=== PATIENT | male | born 1990 | race Caucasian/White ===

== ENCOUNTER → 2017-02-24 | Outpatient (CLI) | payer BC | END | disposition home or self-care (01) | LOC: LABPAT 07:15 | PROVIDERS: ATTEND Surgery | DX: Z01.810 Encounter for preprocedural cardiovascular examination (principal); Z01.812 Encounter for preprocedural laboratory examination; I10 Essential (primary) hypertension | CPT/HCPCS: 93005 ==

== ENCOUNTER 2017-02-25 06:39 | Day surgery (SDC) | payer BC ==
[2017-02-23 11:37] VITALS: BMI 45.9
[~2017-02-25 06:39] MED LIST: HEPARIN SODIUM,PORCINE 5,000 UNIT/ML 1 ML VIAL SQ ONE; ceFAZolin 3 GM in SODIUM CHLORIDE 0.9% 100 ML IVPB ONE
[2017-02-25] MEDS ORDERED: DEXAMETHASONE SOD PHOSPHATE 10 MG/ML 1 ML VIAL IV ONE (06:41)
[2017-02-25] MEDS ORDERED: LACTATED RINGERS 1,000 ML IV SCH (06:41)
[2017-02-25] MEDS ORDERED: MIDAZOLAM 2 MG/2 ML VIAL IV PRN (06:41)
[2017-02-25] MEDS ORDERED: ONDANSETRON 4 MG/2 ML VIAL IVP ONE (06:41)
[2017-02-25] MEDS ORDERED: HYDROmorphone 0.5 MG/0.5 ML SYRINGE IVP PRN (06:41)
[2017-02-25] MEDS ORDERED: SCOPOLAMINE 1.5MG/72HR PATCH TRANSDERM ONE (06:41)
[2017-02-25] MEDS ORDERED: LIDOCAINE 1% 20 ML VIAL (10MG/ML) FOR IV START INTRADERMA ONE (07:10)
--- NOTE | 2017-02-25 07:54 | P.GSHP ---
History of Present Illness H&P Date: 02/25/17 Chief Complaint: Right upper quadrant pain This is a 26-year-old male who's had complaints of right quadrant pain. His recent HIDA scan shows evidence of biliary hypokinesis. He presents today for laparoscopic cholecystectomy. Past Medical History Past Medical History: Hypertension Additional Past Medical History / Comment(s): fx ankle History of Any Multi-Drug Resistant Organisms: None Reported Past Surgical History: Orthopedic Surgery Additional Past Surgical History / Comment(s): shoulder scope; skin graft from shoulder to ankle Past Anesthesia/Blood Transfusion Reactions: No Reported Reaction Smoking Status: Never smoker - Past Family History Mother Family Medical History: Cancer, Deep Vein Thrombosis (DVT) Medications and Allergies Home Medications Medication Instructions Recorded Confirmed Type amLODIPine BESYLATE/BENAZEPRIL 1 cap PO DAILY 02/23/17 02/25/17 History [Lotrel 5-20 mg Capsule] Allergies Allergy/AdvReac Type Severity Reaction Status Date / Time Penicillins Allergy Severe Anaphylaxis Verified 02/25/17 07:45 Fish Containing Products Allergy Rash/Hives Verified 02/25/17 06:51 fish derived Allergy Rash/Hives Verified 02/25/17 06:51 iodine Allergy Anaphylaxis Verified 02/25/17 06:51 Surgical - Exam Vital Signs Temp Pulse Resp BP Pulse Ox 98.8 F 82 16 128/85 98 02/25/17 06:57 02/25/17 06:57 02/25/17 06:57 02/25/17 06:57 02/25/17 06:57 - General well developed, no distress - Eyes PERRL - ENT normal pinna - Neck no masses - Respiratory normal expansion - Cardiovascular Rhythm: regular - Abdomen Mild right upper quadrant tenderness Abdomen: soft Assessment and Plan Plan: Right upper quadrant pain Chronic cholecystitis We'll perform laparoscopic cholecystectomy
[2017-02-25] MEDS ORDERED: MIDAZOLAM 2 MG/2 ML VIAL ONE (07:56)
[2017-02-25] MEDS ORDERED: SUCCINYLCHOLINE CHLORIDE VIAL 200 MG/10 ML VIAL IV ONE (07:56)
[2017-02-25] MEDS ORDERED: ROCURONIUM BROMIDE 10 MG/ML 10 ML VIAL IV ONE (07:56)
[2017-02-25] MEDS ORDERED: LIDOCAINE 1% INJ 10MG/ML (20 ML MDV) ONE (07:56)
[2017-02-25] MEDS ORDERED: ePHEDrine SULFATE/0.9% NACL/PF 50 MG/5 ML SYRINGE IV ONE (07:56)
[2017-02-25] MEDS ORDERED: fentaNYL (PF) 50 MCG/ML 2 ML AMP ONE (07:56)
[2017-02-25] MEDS ORDERED: HYDROmorphone (PF) 1 MG/ML ONE (07:56)
[2017-02-25] MEDS ORDERED: PROPOFOL 10 MG/ML 20 ML VIAL IV ONE (07:56)
[2017-02-25] MEDS ORDERED: GLYCOPYRROLATE 0.2 MG/ML 2 ML VIAL ONE (07:56)
[2017-02-25] MEDS ORDERED: NEOSTIGMINE 1 MG/ML 10 ML VIAL ONE (07:56)
[2017-02-25] MEDS ORDERED: SODIUM CHLORIDE 0.9% 100 ML with CLINDAMYCIN 900 MG IV ONE ×2 (08:08)
[2017-02-25] MEDS ORDERED: BUPIVACAIN-EPI 0.5%-1:200,000 30 ML VIAL SQ ONE (08:12)
[2017-02-25] MEDS ORDERED: LACTATED RINGERS 1,000 ML IV ONE (08:37)
[2017-02-25 09:07] VITALS: TEMP 98.2
--- NOTE | 2017-02-25 09:31 | P.OP ---
Date of Procedure: 02/25/17 Preoperative Diagnosis: Cholecystitis Postoperative Diagnosis: Cholecystitis Procedure(s) Performed: Laparoscopic cholecystectomy Anesthesia: SUSAN Surgeon: Donnie Hankins Estimated Blood Loss (ml): 5 Pathology: other (Gallbladder) Condition: stable Disposition: PACU Description of Procedure: The patient was placed on the operating table. The patient received a general endotracheal tube anesthesia. The patients abdomen was prepped and draped in the usual sterile fashion. Through an infraumbilical stab incision, the fascia of the anterior abdominal wall was grasped with a pair of Kochers and then the Veress needle was placed in the peritoneal cavity. Position of the Veress needle was confirmed with positive drop test. The abdomen was then insufflated. After adequate insufflation, the 10 mm trocar was placed in the peritoneal cavity. Following this the laparoscope was placed in the peritoneal cavity. The patient was placed in the head-up, right side up position and then a 5 mm trocar was placed in the right lateral and right subcostal position under direct visualization. A 8 mm trocar was placed in the epigastric position. The gallbladder was grasped in the fundus and infundibulum. Traction on the gallbladder was placed in the lateral and the cephalad positions. The triangle of Calot was visualized.. The cystic duct was bluntly dissected until the union of the cystic duct and common bile duct was seen. The cystic duct was then divided and sealed with the Harmonic scissors. A PDS Endoloop was then placed throughout the cystic duct stump. The cystic artery divided and sealed with the Harmonic scissors. The gallbladder was then removed from the liver bed using Harmonic scissors. The gallbladder was then extracted through the epigastric port site. Operative field was checked for any bleeding spots and Harmonic scissors was used to coagulate the liver bed. The abdomen was irrigated. The trocars were removed. The skin was closed using interrupted 3-0 Vicryl suture. Dermabond dressing were applied. The patient tolerated the procedure well.
[2017-02-25 09:48] VITALS: RESP 16
[2017-02-25] MEDS ORDERED: HYDROcodone/APAP 7.5-325MG 1 EACH TAB PO ONE (11:29)
[2017-02-25 11:51] VITALS: BP 136/66; PULSE 109
== END 2017-02-25 12:29 | disposition home or self-care (01) ==
LOC: OR 06:39
PROVIDERS: ATTEND Surgery
DX: K81.1 Chronic cholecystitis (principal); I10 Essential (primary) hypertension; Z79.899 Other long term (current) drug therapy; Z88.0 Allergy status to penicillin; Z91.018 Allergy to other foods; Z91.041 Radiographic dye allergy status
CPT/HCPCS: 47562; 88304; J2250; J0330; J1644; J1100; J2710; J2405; J2001; J3010; J1170; J2704

== ENCOUNTER 2017-03-16 01:24 | Emergency (ER) | payer BC ==
[2017-03-16] MEDS ORDERED: KETOROLAC 30 MG/ML 1 ML VIAL IVP STA (01:53)
--- NOTE | 2017-03-16 01:59 | ED ---
Chest Pain HPI - General Chief Complaint: Chest Pain Stated Complaint: Chest Pain x2 days Time Seen by Provider: 03/16/17 01:34 Source: patient Mode of arrival: ambulatory Limitations: no limitations - History of Present Illness Initial Comments: This is a 27-year-old male who presents with complaints of chest pain lasting for the past 2 days he points to his lower sternum states the pain is at times burning when he bends over it sharp. He states currently is 5/10 severity is had a cough with some white to yellow phlegm he's had chills and sweats no fever he states he is a nonsmoker. He has no prior history of heart or lung disease he does state his mother started having her disease in her 40s however. He voices no other complaints he denies any heavy lifting out of the ordinary. No injury that he can think of. No nausea no vomiting no other symptoms MD Complaint: chest pain - Related Data Home Medications Medication Instructions Recorded Confirmed amLODIPine BESYLATE/BENAZEPRIL 1 cap PO DAILY 02/23/17 02/25/17 [Lotrel 5-20 mg Capsule] Previous Rx's Medication Instructions Recorded Docusate [Colace] 100 mg PO BID #20 capsule 02/25/17 HYDROcodone/APAP 7.5-325MG [[place] 1 each PO Q4H PRN #60 tab 02/25/17 7.5] Ibuprofen 800 mg PO Q6HR PRN #20 tablet 03/16/17 Allergies Allergy/AdvReac Type Severity Reaction Status Date / Time Penicillins Allergy Severe Anaphylaxis Verified 03/16/17 01:30 Fish Containing Products Allergy Rash/Hives Verified 03/16/17 01:30 fish derived Allergy Rash/Hives Verified 03/16/17 01:30 iodine Allergy Anaphylaxis Verified 03/16/17 01:30 Review of Systems ROS Statement: Those systems with pertinent positive or pertinent negative responses have been documented in the HPI. ROS Other: All systems not noted in ROS Statement are negative. EKG Findings - EKG Results: EKG: interpreted by ERICK, sinus rhythm (Sinus rhythm rate of 94 MS interval 150 to QRS 106 QT since QTC of 3:30/422 LVH is noted by voltage criteria) Past Medical History Past Medical History: Hypertension Additional Past Medical History / Comment(s): fx ankle History of Any Multi-Drug Resistant Organisms: None Reported Past Surgical History: Cholecystectomy, Orthopedic Surgery Additional Past Surgical History / Comment(s): shoulder scope; skin graft from shoulder to ankle Past Anesthesia/Blood Transfusion Reactions: No Reported Reaction Past Psychological History: No Psychological Hx Reported Smoking Status: Never smoker - Past Family History Mother Family Medical History: Cancer, Deep Vein Thrombosis (DVT) General Exam - General Exam Comments Initial Comments: This is a well-developed well-nourished awake alert oriented 3 male Limitations: no limitations General appearance: alert, in no apparent distress Head exam: Present: atraumatic, normocephalic, normal inspection Eye exam: Present: normal appearance, PERRL, EOMI. Absent: scleral icterus, conjunctival injection, periorbital swelling ENT exam: Present: normal exam, mucous membranes moist Neck exam: Present: normal inspection. Absent: tenderness, meningismus, lymphadenopathy Respiratory exam: Present: normal lung sounds bilaterally, chest wall tenderness (Reproducible tenderness palpation along the lower costal sternal borders bilaterally). Absent: respiratory distress, wheezes, rales, rhonchi, stridor Cardiovascular Exam: Present: regular rate, normal rhythm, normal heart sounds. Absent: systolic murmur, diastolic murmur, rubs, gallop, clicks GI/Abdominal exam: Present: soft, normal bowel sounds. Absent: distended, tenderness, guarding, rebound, rigid Extremities exam: Present: normal inspection, full ROM, normal capillary refill. Absent: tenderness, pedal edema, joint swelling, calf tenderness Back exam: Present: normal inspection Neurological exam: Present: alert, oriented X3, CN II-XII intact Psychiatric exam: Present: normal affect, normal mood Skin exam: Present: warm, dry, intact, normal color. Absent: rash Course Vital Signs 03/16/17 03/16/17 03/16/17 01:28 02:18 03:11 Temperature 98 F Pulse Rate 104 H 97 70 Respiratory 16 18 Rate Blood Pressure 155/89 150/87 135/66 O2 Sat by Pulse 99 99 96 Oximetry Chest Pain MDM - MDM I did review the imaging and reports no acute findings. I did discuss findings with patient the presentation is consistent with costochondritis patient will be discharged on appropriate medication is a follow-up with his doctor and return when necessary Disposition Clinical Impression: Chest wall syndrome, Costalchondritis Disposition: HOME SELF-CARE Condition: Good Instructions: Costochondritis (ED) Prescriptions: Ibuprofen 800 mg PO Q6HR PRN #20 tablet PRN Reason: Pain Referrals: Milton Wayne DO [Primary Care Provider] - 1-2 days
--- NOTE | 2017-03-16 02:14 | XR ---
EXAMINATION TYPE: XR chest 2V DATE OF EXAM: 03/16/2017 COMPARISON: NONE HISTORY: Chest pain TECHNIQUE: Frontal and lateral views of the chest are obtained. FINDINGS: Heart and mediastinum are normal. Lungs are clear. Diaphragm is normal. Bony thorax appear s normal. IMPRESSION: Normal chest
[2017-03-16 02:38] LABS: INR 1.1 (<1.2); Prothrombin Time 10.8 sec (9.0-12.0)
[2017-03-16 02:40] LABS: ALT 36 U/L (21-72); AST 15 U/L (17-59); Alkaline Phosphatase 120 U/L (38-126); Anion Gap 12 mmol/L; Blood Urea Nitrogen 16 mg/dL (9-20); Calcium 9.4 mg/dL (8.4-10.2); Carbon Dioxide 26 mmol/L (22-30); Chloride 103 mmol/L (98-107); Glucose 105 mg/dL (74-99); Non-African American GFR(MDRD) >60 (>60 ml/min/1.73 sqM); Sodium 141 mmol/L (137-145); Total Bilirubin 0.3 mg/dL (0.2-1.3); Total Protein 7.3 g/dL (6.3-8.2)
[2017-03-16 02:51] LABS: Basophils # (A) 0.1 k/uL (0-0.2); Basophils % (A) 1 %; CH 32.1; CHCM 35.7; Creatine Kinase 84 U/L (55-170); Eosinophils # (A) 0.1 k/uL (0-0.7); Eosinophils % (A) 1 %; HDW 2.61; HGB 13.1 gm/dL (13.0-17.5); Luc # (Auto) 0.18; Luc % (Auto) 2; Lymphocytes # (A) 3.3 k/uL (1.0-4.8); Lymphocytes % (A) 30 %; MCH 30.4 pg (25.0-35.0); MCHC 33.6 g/dL (31.0-37.0); MCV 90.3 fL (80.0-100.0); Mean Platelet Volume 7.5; Monocytes # (A) 0.6 k/uL (0-1.0); Monocytes % (A) 6 %; Neutrophils # (A) 6.7 k/uL (1.3-7.7); Neutrophils % (A) 62 %; RBC 4.32 m/uL (4.30-5.90); RDW 13.8 % (11.5-15.5); WBC 10.9 k/uL (3.8-10.6); WBC (Perox) 11.42
[2017-03-16 03:04] LABS: Creatine Kinase MB 0.3 ng/mL (0.0-2.4); Troponin I <0.012 ng/mL (0.000-0.034)
[2017-03-16 03:12] VITALS: BP 135/66; PULSE 70; RESP 18
[2017-03-16 03:29] VITALS: TEMP 98.1
== END 2017-03-16 03:29 | disposition home or self-care (01) ==
LOC: EC 01:24
DX: M94.0 Chondrocostal junction syndrome [Tietze] (principal); R07.1 Chest pain on breathing; I10 Essential (primary) hypertension; Z79.899 Other long term (current) drug therapy; Z88.0 Allergy status to penicillin; Z88.8 Allergy status to other drugs, medicaments and biological substances; Z91.030 Bee allergy status
CPT/HCPCS: 36415; 93005; 80053; 82550; 82553; 83735; 84484; 85025; 85610; 85730; 71020; 99285; 96374; J1885

== ENCOUNTER 2017-09-19 19:48 | Inpatient (IN) | payer BC ==
--- NOTE | 2017-09-19 20:39 | ED ---
Psych HPI - General Chief Complaint: Psychiatric Symptoms Stated Complaint: Mental Health Time Seen by Provider: 09/19/17 20:23 Source: patient, family, RN notes reviewed Mode of arrival: ambulatory - History of Present Illness Initial Comments: This is a 27-year-old male who presents to the emergency department with chief complaint of mental health evaluation. Patient is accompanied by his sister and a friend. They state the patient attempted suicide earlier today. They state that he attempted to hang himself but called for help before doing so. They state that he has attempted suicide multiple times in the past. Patient reports positive suicidal ideation but denies homicidal ideation. Denies auditory or visual hallucinations. Denies alcohol or illicit drug use. Denies any recent illnesses. He does state that he has a headache but has no other complaints. Denies fever, chills, chest pain, shortness of breath, abdominal pain, nausea or vomiting, constipation or diarrhea, dysuria or hematuria, numbness or tingling, or vision changes. - Related Data Home Medications Medication Instructions Recorded Confirmed amLODIPine BESYLATE/BENAZEPRIL 1 cap PO DAILY 02/23/17 02/25/17 [Lotrel 5-20 mg Capsule] Previous Rx's Medication Instructions Recorded Docusate [Colace] 100 mg PO BID #20 capsule 02/25/17 HYDROcodone/APAP 7.5-325MG [[place] 1 each PO Q4H PRN #60 tab 02/25/17 7.5] Ibuprofen 800 mg PO Q6HR PRN #20 tablet 03/16/17 Allergies Allergy/AdvReac Type Severity Reaction Status Date / Time Penicillins Allergy Severe Anaphylaxis Verified 09/19/17 20:19 Fish Containing Products Allergy Rash/Hives Verified 09/19/17 20:19 fish derived Allergy Rash/Hives Verified 09/19/17 20:19 iodine Allergy Anaphylaxis Verified 09/19/17 20:19 Review of Systems ROS Statement: Those systems with pertinent positive or pertinent negative responses have been documented in the HPI. ROS Other: All systems not noted in ROS Statement are negative. Past Medical History Past Medical History: Hypertension Additional Past Medical History / Comment(s): fx ankle, frontal lobe aneursym History of Any Multi-Drug Resistant Organisms: None Reported Past Surgical History: Cholecystectomy, Orthopedic Surgery Additional Past Surgical History / Comment(s): shoulder scope; skin graft from shoulder to ankle, aneursym repair Past Anesthesia/Blood Transfusion Reactions: No Reported Reaction Past Psychological History: Anxiety, Bipolar, Depression Smoking Status: Never smoker Past Alcohol Use History: Daily Past Drug Use History: None Reported - Past Family History Mother Family Medical History: Cancer, Deep Vein Thrombosis (DVT) General Exam - General Exam Comments Initial Comments: General: Awake and alert, well-developed; in no apparent distress. Sister and friend are at bedside. HEENT: Head atraumatic, normocephalic. Pupils are equal, round and reactive to light. Extraocular movements intact. Oropharynx moist without erythema or exudate. Neck: Supple. Normal ROM. Cardiovascular: Regular rate and rhythm. No murmurs, rubs or gallops. Chest symmetrical. Respiratory: Lungs clear to auscultation bilaterally. No wheezes, rales or rhonchi. Normal respiratory effort with no use of accessory muscles. Abdomen: Soft, non-tender, non-distended. No rigidity, rebound or guarding. Normal bowel sounds in all 4 quadrants. Musculoskeletal: Normal ROM, no tenderness bilateral upper and lower extremities. Ambulating normally. Skin: [place], warm and dry without rashes or lesions. Neurological: Alert and oriented x3. CN II-XII grossly intact. Speech is fluent and answers are appropriate. No focal neuro deficits. Psychiatric: Normal mood and affect. No overt signs of depression or anxiety noted. Limitations: no limitations Course Vital Signs 09/19/17 20:14 Temperature 98.3 F Pulse Rate 126 H Respiratory 18 Rate Blood Pressure 134/83 O2 Sat by Pulse 97 Oximetry Medical Decision Making - Medical Decision Making This is a 27-year-old male who presented to the emergency department with suicidal ideation. BAT was negative and patient was cleared for psychiatric evaluation. Patient was assessed by EPS nurse and she recommended admission to the psychiatric unit. Patient did sign in voluntarily. Vital signs are stable and he is in no acute distress. Has no physical complaints. Disposition Clinical Impression: Suicidal ideation Disposition: ADMITTED IP TO THIS HOSP Condition: Stable Is patient prescribed a controlled substance at d/c from ED?: No Referrals: Milton Wayne DO [Primary Care Provider] - 1-2 days Time of Disposition: 22:59
[2017-09-19] MEDS ORDERED: IBUPROFEN 600 MG TAB PO STA (20:54)
[2017-09-20] MEDS ORDERED: ACETAMINOPHEN TAB 325 MG TAB PO PRN (00:08)
[2017-09-20] MEDS ORDERED: ZIPRASIDONE 20 MG VIAL IM PRN (00:08)
[2017-09-20] MEDS ORDERED: LORazepam 1 MG TAB PO PRN (00:08)
[2017-09-20] MEDS ORDERED: MAG HYDROX/AL HYDROX/SIMETH 30 ML CUP PO PRN (00:08)
[2017-09-20] MEDS ORDERED: IBUPROFEN 800 MG TAB PO PRN (00:14)
[2017-09-20 00:23] VITALS: BMI 46.7
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
[2017-09-20] MEDS: DOCUSATE 100 MG CAP PO SCH ×2 (09:59→21:37)
[2017-09-20] MEDS: LISINOPRIL 20 MG TAB PO SCH (09:59)
[2017-09-20] MEDS: amLODIPine 5 MG TAB PO SCH (10:00)
--- NOTE | 2017-09-20 10:16 | P.HP ---
Psychiatric H&P - . H&P Date: 09/20/17 History & Physical: Allergies Allergy/AdvReac Type Severity Reaction Status Date / Time Penicillins Allergy Severe Anaphylaxis Verified 09/20/17 00:28 Fish Containing Products Allergy Rash/Hives Verified 09/20/17 00:28 fish derived Allergy Rash/Hives Verified 09/20/17 00:28 iodine Allergy Anaphylaxis Verified 09/20/17 00:28 Vital Signs Temp 97.6 F 09/20/17 06:45 Pulse 101 H 09/20/17 06:45 Resp 16 09/20/17 06:45 BP 133/65 09/20/17 06:45 Pulse Ox 97 09/20/17 00:15 Intake & Output 09/19/17 09/20/17 09/20/17 18:59 06:59 18:59 Weight 148 kg 09/20/17 09:54 Identification: Jared Rosales is a 27 years old single white male living in [facility]. He was admitted to [facility] on 09/19/2017 under a petition for a psychiatric evaluation since he had attempted to hang himself. History of present illness: Patient said he had a rope with the not and insisted it was not around his neck. Instead of hanging himself he called his friend, who in turn called his sister and he was brought to the ER. When he was asked for the reasons for doing it he said he was tired of everything in life. He said he has been working swing shifts of 14 days on end 2 days of for the last 2 years. He has been fighting with the mother of his daughter apparently for visitation. He broke up with his girlfriend about 5 months ago and they are having arguments constantly about her overeating him about $5000 he loaned. Patient said he gets really happy or sad. His being happy last from one week to 1 month sometimes it is caused by something and sometimes spontaneously. He said he believes trucks, talkative and friendly when he is happy. But he denies unusual physical activities, spending sprees, sexual overactivity etc. to suggest manic episodes. He also denies grandiose thinking. He said he may stay sad for up to 2 weeks which also happens spontaneously. He denies symptoms to make a diagnosis of depressive episodes. He said he handles these periods by working at maintaining his full-time job etc. He has a long-standing temper issues, drives fast or works on his trucks to handle his temper issues. He denies getting into fights. He denies hallucinations and delusional thinking. Previous psychiatric history/drug and alcohol abuse: He was never in a psychiatric hospital. He has been seeing a therapist since end of March 2017 every 2 weeks for therapy after he broke up with his girlfriend he is not able to tell me the purpose of seeing a therapist except to say that it is too open himself up as required by his girlfriend. He does not take any psychiatric medication. He said he tried to shoot himself when he was in the high school, the gun did not fire and he thought of hurting himself later on but never did anything to hurt himself. He denies abusing drugs and alcohol. Lab tests were not done on him in the ER. Previous medical history: He is ALLERGIC to penicillins, fish products and iodine. He has hypertension and takes medications. He had cholecystectomy and left shoulder surgery for injury related to his gym activity. He has 6 tattoos over his body. He does not have any piercings. He did not cut himself. Social history: He had graduated from high school. He has certificate in automotive collision repair. He did not have any issues with learning or discipline when he was going to school except for cutting classes and working and making money. He said he made doctor's note on the computer whenever he cut classes. He said it was very easy to make doctor's notes indicate computer. He was not in any sports or games. He said he was throwing parties when he was going to school, played with trucks etc. he was kicked out of class for being smartass. He was raised well by his parents. He was not abused. He did not run away from home or shoplift but he had stolen car parts worse over $ 60,000. 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 He said he has a daughter who is 7 years old who lives in [place]. He does not pay child support since his name is not on the certificate. Apparently the mother of his daughter was his best friend's girlfriend, he had broken up from his girlfriend and they had a weekend affair which resulted in the of this child. Currently he lives by himself in his house. He works at [employer] for the last 2 years. He has [employer] and [employer] health insurance. He was not in the service. He is Yarsani by muslim and goes to protestant once in a while. He is heterosexual and does not have a girlfriend now. He denies any pending legal issues. Family history: He said his mother has memory problems, kidney problems heart problems, had hysterectomy, hip replacement, diabetes etc. His father has diabetes and COPD. His brother has asthma and heart murmur. Mental status examination: This is an obese ambulatory white male with adequate hygiene. He has bushy gerardo which is trimmed. He has multiple tattoos. He does not show any psychomotor agitation or retardation. His speech is spontaneous relevant and goal-directed. His mood is euthymic to cheerful and affect is somewhat inappropriate in the sense that he giggles at times which may be a nervous giggle. He insists that he is not suicidal or homicidal and wants to go home, see his nieces and go back to work. He denies homicidal thoughts. He denies hallucinations and delusional thinking. He is well oriented with adequate memory. He is able to recall 3 out of 3 items after 5 minutes. He is able to name the last 4 presidents correctly. He is able to spell house both forwards and backwards correctly. He is able to say 8+7 is 15 and 87 is 56 without any difficulty. His insight is fair and judgment is impaired as evidenced by his impulsive behavior and then calling his friends about it. Diagnostic impression: Rule out unspecified bipolar and related disorder F 31.9. 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 ALLERGY to penicillins, iodine and fish products. Hypertension. Treatment plan: He already had his physical examination. He will have psychosocial evaluation. He will receive milieu therapy group therapy individual therapy occupational therapy recreational therapy and medication education. He signed voluntary application. I am not planning on starting him on any psychiatric medications at this time since I'm not sure about his diagnosis. I will consider medications if I gather information can decide on medications after psychosocial evaluation. Discharge with outpatient follow-up. Treatment goals: He will continue not to be suicidal. He will learn better coping skills. Estimated length of stay: 2-5 days.
[2017-09-20 17:44] LABS: Amorphous Sediment,Urine Occasional /hpf; Appearance,Urine Cloudy (Clear); Bilirubin,Urine Negative (Negative); Blood,Urine Negative (Negative); Color,Urine Yellow; Glucose,Urine (UA) Negative (Negative); Ketones,Urine Negative (Negative); Leukocyte Esterase,Urine Negative (Negative); Mucus,Urine Rare /hpf; Nitrite,Urine Negative (Negative); Protein,Urine Negative (Negative); RBC,Urine 2 /hpf (0-5); Specific Gravity,Urine 1.017 (1.001-1.035); Squamous Epithelial Cell,Urine <1 /hpf (0-4); Urobilinogen,Urine <2.0 mg/dL (<2.0)
[2017-09-20 17:54] LABS: Amphetamine Screen,Urine Not Detected (NotDetected); Barbiturate Screen,Urine Not Detected (NotDetected); Benzodiazepines Screen,Urine Not Detected (NotDetected); Cocaine Screen,Urine Not Detected (NotDetected); Methadone Screen, Urine Not Detected (NotDetected); Opiate Screen,Urine Not Detected (NotDetected); Oxycodone Screen, Urine Not Detected (NotDetected); Phencyclidine Screen,Urine Not Detected (NotDetected); Tricyclic Antidepressant,Urine Not Detected (NotDetected); Urn Cannabinoid Scrn Not Detected (NotDetected)
[2017-09-21 00:28] LABS: Glucose,Whole Blood 275 mg/dL (75-99)
[2017-09-21 06:52] VITALS: TEMP 97.5
[2017-09-21] MEDS: amLODIPine 5 MG TAB PO SCH (09:03)
[2017-09-21] MEDS: LISINOPRIL 20 MG TAB PO SCH (09:06)
[2017-09-21] MEDS: DOCUSATE 100 MG CAP PO SCH (09:07)
[2017-09-21 09:10] VITALS: BP 133/91; PULSE 115; RESP 20
[2017-09-21 09:22] LABS: Basophils # (A) 0.1 k/uL (0-0.2); Basophils % (A) 1 %; Eosinophils # (A) 0.1 k/uL (0-0.7); Eosinophils % (A) 1 %; HCT 41.8 % (39.0-53.0); HGB 14.3 gm/dL (13.0-17.5); Lymphocytes # (A) 2.1 k/uL (1.0-4.8); Lymphocytes % (A) 19 %; MCH 29.9 pg (25.0-35.0); MCHC 34.2 g/dL (31.0-37.0); MCV 87.4 fL (80.0-100.0); Mean Platelet Volume 7.2; Monocytes # (A) 0.7 k/uL (0-1.0); Monocytes % (A) 6 %; Neutrophils # (A) 7.9 k/uL (1.3-7.7); Neutrophils % (A) 73 %; Platelet Count 354 k/uL (150-450); RBC 4.78 m/uL (4.30-5.90); RDW 12.7 % (11.5-15.5); WBC 10.8 k/uL (3.8-10.6)
[2017-09-21 09:33] LABS: ALT 26 U/L (21-72); AST 16 U/L (17-59); Albumin 4.6 g/dL (3.5-5.0); Alkaline Phosphatase 116 U/L (38-126); Anion Gap 14 mmol/L; Blood Urea Nitrogen 17 mg/dL (9-20); Calcium 10.1 mg/dL (8.4-10.2); Carbon Dioxide 30 mmol/L (22-30); Chloride 102 mmol/L (98-107); Cholesterol 140 mg/dL (<200); Glucose 96 mg/dL (74-99); HDL Cholesterol 33 mg/dL (40-60); LDL Cholesterol,Calculated 81 mg/dL (0-99); Potassium 4.8 mmol/L (3.5-5.1); Sodium 146 mmol/L (137-145); Total Bilirubin 0.8 mg/dL (0.2-1.3); Total Protein 7.5 g/dL (6.3-8.2); Triglycerides 132 mg/dL (<150)
--- NOTE | 2017-09-21 11:53 | P.DS ---
Providers Date of admission: 09/19/17 23:25 Expected date of discharge: 09/21/17 Attending physician: Shravan Ramey Consults: 09/20/17 00:08 Consult Physician Routine Consulting Provider: Ilsa Physician Consult Reason/Comments: H&P for mental health admission Do you want consulting provider notified?: Yes Primary care physician: Milton Wayne [facility] Course: Patient had his psychiatric evaluation, physical examination and psychosocial evaluation. After psychiatric evaluation he was not started on any psychiatric medications since a definite diagnosis of psychiatric disorder which could be treated with medications was not made. He attended groups and interacted with staff and peers and got along well without any issues with his mood changes or behavior. He continued to deny suicide and homicide thoughts. He agreed to go home and continue with outpatient treatment. In view of this it was agreed to discharge him. Condition on discharge: This is an obese ambulatory white male with adequate hygiene. He does not show any psychomotor agitation or retardation. His speech is spontaneous relevant and goal-directed. His mood is euthymic and affect is appropriate. He denies hallucinations, delusional thinking, suicide and homicide thoughts. He is well oriented with adequate memory concentration general knowledge etc. His insight and judgment appear to be adequate. 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 ALLERGY to penicillins iodine and fish products. Hypertension. Patient was advised and agreed to take his medications as prescribed, learn better coping skills through therapy including DBT. Patient Condition at Discharge: Good Plan - Discharge Summary Discharge Rx Participant: No New Discharge Prescriptions: New Ibuprofen [Motrin] 800 mg PO Q6HR PRN tab PRN Reason: Pain Mag Hydrox/Al Hydrox/Simeth [Maalox] 30 ml PO Q4HR PRN cup PRN Reason: Gi Upset Continue amLODIPine BESYLATE/BENAZEPRIL [Lotrel 5-20 mg Capsule] 1 cap PO DAILY 30 Days #30 capsule Docusate [Colace] 100 mg PO BID #20 capsule Discontinued HYDROcodone/APAP 7.5-325MG [[place] 7.5] 1 each PO Q4H PRN #60 tab PRN Reason: Pain Ibuprofen 800 mg PO Q6HR PRN #20 tablet PRN Reason: Pain Discharge Medication List Docusate [Colace] 100 mg PO BID #20 capsule 09/21/17 [Rx] Ibuprofen [Motrin] 800 mg PO Q6HR PRN tab 09/21/17 [Rx] Mag Hydrox/Al Hydrox/Simeth [Maalox] 30 ml PO Q4HR PRN cup 09/21/17 [Rx] amLODIPine BESYLATE/BENAZEPRIL [Lotrel 5-20 mg Capsule] 1 cap PO DAILY 30 Days # 30 capsule 09/21/17 [Rx] Follow up Appointment(s)/Referral(s): [facility] [Outside] - 09/23/17 7:00 pm (Appointment with Dr. Vidal) Milton Wayne DO [Primary Care Provider] - 1-2 days
[2017-09-21 18:39] LABS: Hemoglobin A1C 5.2 % (4.0-6.0)
== END 2017-09-21 14:17 | disposition home or self-care (01) | DRG 883 ==
LOC: EC 19:48 → 3MHU 23:25
PROVIDERS: ADMIT Psychiatry & Neurology Psychiatry; ATTEND Psychiatry & Neurology Psychiatry
DX: F60.9 Personality disorder, unspecified (principal); R45.851 Suicidal ideations; Z68.42 Body mass index [BMI] 45.0-49.9, adult; I10 Essential (primary) hypertension; E66.9 Obesity, unspecified; Z91.018 Allergy to other foods; Z88.0 Allergy status to penicillin; Z88.8 Allergy status to other drugs, medicaments and biological substances; Z82.5 Family history of asthma and other chronic lower respiratory diseases; Z82.49 Family history of ischemic heart disease and other diseases of the circulatory system; Z83.3 Family history of diabetes mellitus; Z90.49 Acquired absence of other specified parts of digestive tract; Z79.899 Other long term (current) drug therapy
CPT/HCPCS: 80053; 80061; 80306; 81001; 82075; 83036; 84443; 85025; 99285

== ENCOUNTER → 2022-04-13 | Outpatient (CLI) | payer OTHER ==
--- NOTE | 2022-04-13 13:52 | MR ---
EXAMINATION TYPE: MR lumbar spine wo con DATE OF EXAM: 04/13/2022 11:28 AM COMPARISON: NONE HISTORY: Low back pain into left leg, numbness in lt leg Multiplanar, MultiSpin echo imaging of the lumbar spine was performed. T11-T12: There is [id number] decreased signal compatible disc desiccation. There is left parace ntral disc herniation which effaces the ventral thecal sac and results in [id number] central st enosis. Left foraminal encroachment noted. T12-L1: Within normal limits L1-L2: Normal disc appearance without desiccation. No herniation, protrusion or disc bulging. No ca nal stenosis is present. Foramina are patent bilaterally. L2-L3: Normal disc appearance without desiccation. No herniation, protrusion or disc bulging. No ca nal stenosis is present. Foramina are patent bilaterally. L3-L4: Normal disc appearance without desiccation. No herniation, protrusion or disc bulging. No ca nal stenosis is present. Foramina are patent bilaterally. L4-L5: Mild decreased signal ossified compatible degenerative disc disease. Posterocentral and slight ly towards the left disc protrusion effaces the ventral thecal sac. No evidence for central stenosis or lateral recess stenosis. Mild left foraminal encroachment. L5-S1: Normal disc appearance without desiccation. No herniation, protrusion or disc bulging. No ca nal stenosis is present. Foramina are patent bilaterally. Lumbar segments are intact. No paraspinal masses are identified. Conus medullaris has a normal appe arance. IMPRESSION: 1. Degenerative disc disease as discussed. 2. Left paracentral disc herniation at T11-12 effacing the ventral thecal sac and resulting in centra l stenosis. 3. Disc protrusion at L4-5 as noted above.
== END | disposition home or self-care (01) ==
LOC: RADMRIMAIN 10:31
PROVIDERS: ATTEND Nurse Practitioner Family
DX: M51.16 Intervertebral disc disorders with radiculopathy, lumbar region (principal); M51.14 Intervertebral disc disorders with radiculopathy, thoracic region
CPT/HCPCS: 72148

== ENCOUNTER → 2022-05-07 | Outpatient (CLI) | payer OTHER ==
[2022-05-07 08:12] VITALS: BP 136/83; PULSE 94; RESP 18; TEMP 98.3
--- NOTE | 2022-05-07 08:16 | P.PAINPG ---
PQRS Measure Charge Sheet Comment: HISTORY OF PRESENT ILLNESS: 32 yr old male as a referral from [facility] presents today w severe and chronic thoracolumbar pain x 7 mo secondary to for evaluation. Pt states pain level is at 6 /10 in intensity, constant, localized in the center of his spine, sharp in character w shooting pain towards the flanks. PT doesn't have time for PT as he works 60 hrs a week. Pain is provoked by twisting, lifting, bending. Pt says chiropractors will not work on his back. Pain is alleviated slightly by ice packs, heating pad use, hot showers, repositioning and rest. PMH: Hypertension PSH: Cholecystectomy, Ankle Fx and Repair, Shoulder Arthoscopy, Skin Graft from Shoulder to Ankle SH: Negative x3. Works at an [employer]. FH: Mo- DVT/ CA. All: See list Meds: See list REVIEW OF ORGAN SYSTEMS: CONSTITUTIONAL: No fevers or chills. No recent weight loss. NEUROLOGICAL: + numbness and tingling along the distal extremities. No seizure disorders or headaches. MUSCULOSKELETAL: + pain PSYCHIATRIC: Denies current depression or suicidal thoughts. Physical Examinations : Constitutional : Cooperative , not in acute distress . Neurologic : Cranial nerve II to XII intact. No focal neurological deficits. Psychiatric : alert & oriented x 3. Matching mood & appropriate affect. Judgment & insight intact. Musculoskeletal : Cervical Spine Motor strength in the deltoid and biceps: Normal right side. Normal Left side Motor strength biceps and the wrist extensors: Normal right side . Normal left side Motor strength in the triceps muscle: Normal right side. Normal left side Deep tendon reflexes: Normal at the biceps. Normal at Brachioradialis. Normal at triceps Vertebral body tenderness to deep palpation over Cervical facet loading test: positive bilaterally Spurling test: positive bilaterally Neck distraction test: positive b ilaterally Dena sign: positive bilaterally Lumbar spine +T12 vertebral body TTP Motor strength lower extremities ,thigh and legs 5/5 Right side , 5/5 Left side Deep tendon reflexes : Normal Knee Jerk. Normal Ankle Jerk Vertebral body tenderness over Lumbar facet Loading Test: positive Right / positive Left Range of motion of the lumbar spine Flexion 30 degrees, extension 10 degrees Straight Leg Raise test: Left/ Right positive at degree Keyon test: positive right / positive left. Severe tenderness over the Sacroiliac joint on the Right / Left sides Gaenslen test: positive bilaterally Seated flexion test: positive bilaterally. Sacral spine : Severe tenderness over the Sacroiliac joint: right side / left side Range of motion: Flexion of the lumbar spine <60 degrees Range of motion: Extension of the lumbar spine <20 degrees Gaenslen's Test positive Sarbjit's Test positive Keyon test: positive right side / left side Thigh Thrust Test Sacral Thrust Test Imaging: MRI without contrast of the lumbar spine from 04/13/22 reviewed Assessment/ Plan : Thoracolumbar DDD Recommendation of PT 2x/ wk x 6 wks. Pt needs to make time in his schedule. May benefit from GERARDO T11-T12. May need a series of injections, up to 3 per 6 mo period, for optimal pain relief. Risks, benefits of procedure discussed and patient verbalized understanding. Denies aspirin or anti- coagulant use or medical history of diabetes. Protocol for discontinuation/ continuation of medications demetrice procedure discussed. All questions answered. I have spent greater than 30 minutes on patient care today. Dr Beckford was available by phone for the evaluation of this patient. The time was used to review the medical records including relevant urine studies and Prescription history (MAPs), review of the available imaging, evaluation and examination of the patient, coordination of care with the medical staff and if applicable referring physicians, as well as creation of the medical record PQRS Narrative: Smoking Status Never smoker Home Medications: Ambulatory Orders Docusate [Colace] 100 mg PO BID #20 capsule 09/21/17 Ibuprofen [Motrin] 800 mg PO Q6HR PRN tab 09/21/17 Mag Hydrox/Al Hydrox/Simeth [Maalox] 30 ml PO Q4HR PRN cup 09/21/17 amLODIPine BESYLATE/BENAZEPRIL [Lotrel 5-20 MG] 1 cap PO DAILY 30 Days #30 capsule 09/21/17 Controlled Substance Measures - Controlled Substance Measures Is patient prescribed a controlled substance at discharge?: No
== END ==
LOC: PNWHC3 07:39
PROVIDERS: ATTEND Specialist
DX: M51.85 Other intervertebral disc disorders, thoracolumbar region (principal); Z88.0 Allergy status to penicillin; Z91.013 Allergy to seafood; Z91.041 Radiographic dye allergy status
CPT/HCPCS: 99211

== ENCOUNTER 2022-08-13 09:30 | Day surgery (SDC) | payer OTHER ==
[2022-08-13 09:53] VITALS: RESP 18; TEMP 97.4
[2022-08-13] MEDS ORDERED: LACTATED RINGERS 1,000 ML IV ONE (09:55)
[2022-08-13] MEDS ORDERED: methylPREDNISolone ACETATE 80 MG/ML 1 ML VIAL ONE (10:16)
[2022-08-13] MEDS ORDERED: fentaNYL (PF) 50 MCG/ML 2 ML AMP ONE (10:16)
[2022-08-13] MEDS ORDERED: MIDAZOLAM 2 MG/2 ML VIAL ONE (10:16)
--- NOTE | 2022-08-13 10:30 | P.PCN ---
Date of Procedure: 08/13/22 Procedure(s) Performed: PREOPERATIVE DIAGNOSIS: 1- Lumbar Degenerative Disc Diseases 2-Lumbar spondylosis with Facet arthropathy without myelopathy. POSTOPERATIVE DIAGNOSIS: Same as preop diagnosis. PROCEDURE 1. Lumbar epidural steroid injection under fluoroscopic guidance at the L4-5 level. (Fluoroscopy imaging was available in radiology department) ANESTHESIA: moderate sedation with intravenous Versed 2 mg ,and fentanyle 100 Mcg Sedation start time : 1022 Sedation end time : 1027 EBL: Minimal PROCEDURE INDICATION: The patient with low back pain and radiculitis symptoms unresponsive to conservative treatment. Fluoroscopy was used to optimize visualization of the needle placement and to maximize safety. PROCEDURE DESCRIPTION / TECHNIQUE: The patient was seen and identified in the preoperative area. Risks, benefits, complications including but not limited to infections ,bleeding ,allergic reaction to the medications ,nerve damage and not complete pain releife , and alternatives were discussed with the patient. The patient agreed to proceed with the procedure and signed the consent. IV was started, and vital signs were stable. Patient was taken to the OR and time out was completed. The patient was placed in the prone position on procedure table and a pillow was placed under the abdomen to reduce lumbar lordosis. The lumbosacral area was prepped and draped in the usual sterile fashion.ere closely monitored during the procedure. Conscious sedation was used during the procedure to decrease patients anxiety. Vital signs was monitered during the entire procedure. Using anterior-posterior fluoroscopy, the L4-5 interlaminar space was identified and the skin over this site was marked and then infiltrated with 1% lidocaine subcutaneously. Subsequently, a 20-gauge Tuohy epidural needle was inserted and advanced toward the epidural space using the ``Loss of resistance technique and guided by AP and lateral fluoroscopy , then after negative aspiration for blood and CSF and in the absence of paresthesias. Again after negative aspiration, a 6 ml mixture containing 80 mg of Depo-medrol ( Preservetive Free ), and 2 ml of preservative free Normal Saline, and 2 ml of preservative free lidocaine 1% solution was injected and a washout of epidurogram was seen. Needle was withdrawn intact, skin was cleansed, and bandages were applied. COMPLICATIONS: None DISPOSITION / PLANS: The patient was placed in a supine position and transferred to the recovery area in a stable condition for observation. There was no evidence of lower extremity motor or sensory deficit after the procedure. Patient was discharged from the recovery room after meeting discharge criteria. Home discharge instructions were given to the patient by the staff. The patient was reexamined prior to discharge. The patient will schedule a follow up in the clinic in 2-4 weeks. note= Isovue was not injected because patient had ALLERGIC to IVP dye
[2022-08-13] MEDS ORDERED: IV FLUID CONTINUATION 1,000 ML IV ONE (10:34)
[2022-08-13 10:53] VITALS: BP 125/71; PULSE 72
--- NOTE | 2022-08-13 13:42 | FL ---
EXAMINATION TYPE: FL guided pain mgmt statistic DATE OF EXAM: 08/13/2022 FLUOROSCOPY Fluoroscopy time of 1 seconds was used during lumbar epidural steroid injection. 1 image/s document/ s the procedure. DAP=.[id number]
== END 2022-08-13 11:00 | disposition home or self-care (01) ==
LOC: ORPAIN 09:30
PROVIDERS: ATTEND Specialist
DX: M51.36 Other intervertebral disc degeneration, lumbar region (principal); M47.816 Spondylosis without myelopathy or radiculopathy, lumbar region
CPT/HCPCS: 62323; J2250; J1040; J3010

== ENCOUNTER → 2022-08-31 | Outpatient (CLI) | payer OTHER ==
[2022-08-31 08:46] VITALS: BP 132/86; PULSE 90; RESP 18; TEMP 98.4
--- NOTE | 2022-08-31 16:26 | P.PAINPG ---
PQRS Measure Charge Sheet Comment: A 32 yr old male with a history of severe and chronic back pain secondary to thoracolumbar DDD and spondylosis with facet arthropathy without myelopathy presents today for evaluation s/p GERARDO L4-L5. Pt states he experienced 0 % pain relief x 2-3 wks s/p procedure. Pain level is provoked at 5 /10 in intensity, constant, localized in the lower thoracic spine, sharp in character w shooting towards the flanks. Pain is provoked by lifting, bending. Pain is alleviated with alternating heat & ice, medications (Neurontin), repositioning and rest. Interventional pain procedures completed include GERARDO L4-L5 Patient is currently on Neurontin Patient denies any side effects of the medication(s), denies excessive drowsiness or sleepiness, denies suicidal ideation and reports that the current pain medication is helping to control the pain and improve activities of daily living. Patient denies any motor or sensory deficits. Patient denies any fever or night sweats, denies any change in the bowel movements or urination. Physical Examination: -Constitutional: Cooperative. Not in acute distress . - Neurologic: Cranial nerve II to XII intact. No focal neurological deficits. - Psychatric: Alert & oriented x 3. Matching mood & appropriate affect. Judgment and insight intact. - Musculoskeletal: Cervical spine: Muscle bulk/ tone/ strength in the bilateral upper extremities normal Vertebral body tenderness to palpation over Spurling test positive Distraction test positive Facet loading test positive TTP Thoracic spine Muscle bulk / tone/ strength in the bilateral paraspinal muscles normal Vertebral body tender to palpation over Facet loading test positive TTP Lumbar spine: Motor bulk/ tone/ strength lower extremities , thigh and legs : 5/5 Deep tendon reflexes : Normal Knee Jerk. Normal Ankle Jerk . Vertebral body tenderness to palpation over Lumbar Facet Loading Test positive Straight Leg Raise: positive at 30 degrees right side/ left side Gaenslen's Test positive Sacral spine : Severe tenderness over the Sacroiliac joint: right side / left side Range of motion: Flexion of the lumbar spine <60 degrees Range of motion: Extension of the lumbar spine <20 degrees Gaenslen's Test positive right side / left side Keyon test: positive right side / left side Thigh Thrust Test positive right side / left side Sacral Thrust Test positive right side / left side Assessment and plan: Chronic LBP secondary to lumbar DDD, spondylosis with facet arthropathy without myelopathy Recommendation of follow up w OA for additional intervention. Risks, benefits of procedure discussed and pt verbalized understanding. Admits to anticoagulant use or medical history of diabetes. Protocol for discontinuation/ continuation of medications demetrice procedure discussed. All questions answered. I have spent less than 30 minutes on patient care today. Dr Beckford was available by phone for the evaluation of this patient. The time was used to r eview the medical records including relevant urine studies and Prescription history (MAPs), review of the available imaging, evaluation and examination of the patient, coordination of care with the medical staff and if applicable referring physicians, as well as creation of the medical record PQRS Narrative: Smoking Status Never smoker Hx Alcohol Use (MH) No Home Medications: Ambulatory Orders Ibuprofen [Motrin] 800 mg PO Q6HR PRN tab 09/21/17 amLODIPine BESYLATE/BENAZEPRIL [Lotrel 5-40 MG] 1 tab PO DAILY 07/07/22 Controlled Substance Measures - Controlled Substance Measures Is patient prescribed a controlled substance at discharge?: No
== END ==
LOC: PNWHC3 08:15
PROVIDERS: ATTEND Specialist
DX: M51.36 Other intervertebral disc degeneration, lumbar region (principal); M47.816 Spondylosis without myelopathy or radiculopathy, lumbar region; G89.29 Other chronic pain; Z88.0 Allergy status to penicillin; Z91.013 Allergy to seafood; Z88.8 Allergy status to other drugs, medicaments and biological substances
CPT/HCPCS: 99211

== ENCOUNTER → 2022-10-07 | Outpatient (CLI) | payer OTHER ==
--- NOTE | 2022-10-08 07:36 | CT ---
EXAMINATION TYPE: CT thoracic spine wo con CT DLP: 3013.1 mGycm, Automated exposure control for dose reduction was used. DATE OF EXAM: 10/07/2022 4:20 PM COMPARISON: MRI lumbar spine 04/13/2022. CLINICAL INDICATION:Male, 32 years old with history of M48.04; PHH, thoracic stenosis. pre surgical p franklin TECHNIQUE: Axial images of the thoracic spine were obtained without contrast. Coronal and sagittal re formats were performed. FINDINGS: The thoracic vertebral bodies have preserved heights and alignment. Central disc protrusion with mild effacement of the anterior thecal sac at T6-T7. T7-T8 central disc protrusion with superior migration of approximately 4 mm suggested. There is mild effacement of the anterior thecal sac at this level. T8-T9 central disc protrusion with superior migration of 5 mm. There is mild effacement of the intrat hecal sac at this level. Broad-based disc bulge at T9-T10 with mild effacement of the intrathecal sac. Left subarticular zone posterior disc osteophyte complex with mild to moderate effacement of the ante rior thecal sac. There is moderate left neural foraminal stenosis. The right neural foramen is patent . No other regions of neural foraminal stenosis identified within the visualized thoracic spine. IMPRESSION: 1. No acute thoracic spinal fracture. 2. Multilevel disc herniations at T6-T7, T7-T8, and T8-T9 with mild spinal canal stenosis. Consider further evaluation with thoracic spine MRI. 3. Multilevel degenerative disc disease as described above.
== END | disposition home or self-care (01) ==
LOC: RADCTMAIN 16:04
PROVIDERS: ATTEND Orthopaedic Surgery
DX: Z01.818 Encounter for other preprocedural examination (principal); M51.24 Other intervertebral disc displacement, thoracic region; M48.04 Spinal stenosis, thoracic region
CPT/HCPCS: 72128

== ENCOUNTER → 2022-10-13 | Outpatient (CLI) | payer OTHER ==
--- NOTE | 2022-10-14 00:05 | MR ---
EXAMINATION TYPE: MR thoracic spine wo con DATE OF EXAM: 10/13/2022 COMPARISON: HISTORY: Low back pain, Leg weakness CONTRAST: None TECHNIQUE: Multiplanar, multiecho imaging on a 3.0 Ashely magnet is performed through the thoracic spi ne. Spinal cord maintains normal signal through its visualized course. Vertebral body alignment is normal. Vertebral body heights are preserved. Disc heights are preserved. Disc desiccation is present within the mid to lower thoracic spine. Minimal central bulging is present T4-5. No cord contact or spinal canal stenosis is present. T5-6: There is a left paracentral disc herniation with moderate anterior thecal sac compression. Cord contact and mild cord deformity is present. T6-7: There is a moderate sized left paracentral disc herniation with cord contact and mild cord defo rmity. No AP spinal canal stenosis is present. T7-8: Central disc herniation appears to be present previously is cord contact. No AP spinal canal st enosis is present. T8-9: Small left paracentral disc herniation is present with mild anterior thecal sac compression. No AP spinal canal stenosis is present. T10-11: Facet hypertrophy is posterior lateral thecal sac compression. No focal disc herniation or si gnificant disc bulge is evident. T11-T12: There is broad-based left paracentral disc bulging. This is mild anterior thecal sac josé miguel lidia. Disc desiccation is present. Correlate with left-sided radicular symptoms. IMPRESSIONS: 1. Moderate size left paracentral disc herniation T6-T7 has cord contact and cord deformity. 2. Left paracentral disc bulging T11-T12 with mild intrathecal sac compression. Correlate with left r adicular symptoms. 3. Additional milder left paracentral disc bulges without cord contact or stenosis
== END | disposition home or self-care (01) ==
LOC: RADMRIMAIN 19:29
PROVIDERS: ATTEND Orthopaedic Surgery
DX: M51.24 Other intervertebral disc displacement, thoracic region (principal); M48.04 Spinal stenosis, thoracic region
CPT/HCPCS: 72146

== ENCOUNTER → 2022-10-23 | Outpatient (CLI) | payer OTHER | END | disposition home or self-care (01) | LOC: LABPAT 08:00 | PROVIDERS: ATTEND Orthopaedic Surgery | DX: Z01.812 Encounter for preprocedural laboratory examination (principal); Z22.322 Carrier or suspected carrier of Methicillin resistant Staphylococcus aureus; M47.814 Spondylosis without myelopathy or radiculopathy, thoracic region; M48.04 Spinal stenosis, thoracic region | CPT/HCPCS: 87070 ==

== ENCOUNTER → 2022-11-12 | Outpatient (CLI) | payer OTHER ==
--- NOTE | 2022-11-12 15:10 | CT ---
EXAMINATION TYPE: CT chest wo con DATE OF EXAM: 11/12/2022 COMPARISON: 11/02/2022 HISTORY: Follow up for left lower lung nodule found on prior CT of T-spine. CT DLP: 689.[address] of the chest was performed with lung and mediastinal window settings submitted. The la ck of contrast limits evaluation of the vascular, mediastinal and parenchymal structures including th e upper abdomen. LUNGS: The lungs are clear and free of infiltrate. No atelectasis. There is a left lower lobe partial ly calcified pulmonary nodule measuring 1.3 cm. This likely reflects a granuloma. 2 mm pulmonary nodu le left lower lobe posteriorly image 43 sequence 4. No additional nodules are seen. No pleural effusi on. No CT evidence of interstitial lung disease. MEDIASTINUM/ROBERTO: Calcified left hilar lymph nodes. Thoracic aorta is of normal caliber with limited evaluation given lack of contrast. The heart is not enlarged. No evidence for mediastinal mass. N o lymph nodes greater than 1cm. UPPER ABDOMEN: Splenic granulomas present. OTHER: No significant other abnormality. IMPRESSION: 1. Findings likely on the basis of remote granulomatous disease.
== END | disposition home or self-care (01) ==
LOC: RADCTMAIN 14:24
PROVIDERS: ATTEND Family Medicine
DX: R91.1 Solitary pulmonary nodule (principal)
CPT/HCPCS: 71250

== ENCOUNTER 2024-11-06 08:00 | Emergency (ER) | payer OTHER ==
[2024-11-06 08:03] VITALS: RESP 18
--- NOTE | 2024-11-06 08:29 | ED ---
Back Pain HPI - General Chief Complaint: Back Pain/Injury Stated Complaint: Back injury Time Seen by Provider: 11/06/24 08:07 Source: patient, RN notes reviewed Mode of arrival: ambulatory Limitations: no limitations - History of Present Illness Initial Comments: This is a 34-year-old male who presents to the emergency department for low back pain. Patient states that it started 2 days ago when he went to get into his car. States that the pain started immediately afterwards. Pain is not worse on any particular side. It is not painful to the touch, states that it is just worse with any kind of movement. He is not taking anything for pain control. Denies any loss of bowel/bladder control or saddle anesthesia. MD Complaint: back pain - Related Data Home Medications Medication Instructions Recorded Confirmed amLODIPine BESYLATE/BENAZEPRIL 1 tab PO QAM 07/07/22 11/02/22 [Lotrel 5-40 MG] Gabapentin 300 mg PO TID 10/29/22 11/02/22 Previous Rx's Medication Instructions Recorded Cyclobenzaprine [Flexeril] 5 mg PO TID #30 tablet 11/04/22 Gabapentin 300 mg PO TID #30 cap 11/04/22 HYDROcodone/APAP 10-325MG [[place] 1 tab PO Q6HR PRN #36 tab 11/04/22 10-325] Sennosides/Docusate Sodium [Senna 1 each PO DAILY #20 capsule 11/04/22 Plus 8.6-50 mg Softgel] Sulfamethox-Tmp 800-160Mg [Bactrim See Rx Instructions .ROUTE 11/04/22 DS 800-160 mg] .COMPLEX #14 tab Cyclobenzaprine [Flexeril] 5 - 10 mg PO TID PRN #30 tablet 11/06/24 Diclofenac Sodium [Voltaren] 75 mg PO BID PRN #30 tab 11/06/24 Lidocaine 5% Patch [Lidoderm 5% 1 patch TOPICAL DAILY PRN #30 patch 11/06/24 Patch] Allergies Allergy/AdvReac Type Severity Reaction Status Date / Time Penicillins Allergy Severe Anaphylaxis Verified 11/06/24 08:03 Fish Containing Products Allergy Anaphylaxis Verified 11/06/24 08:03 fish derived Allergy Anaphylaxis Verified 11/06/24 08:03 iodine Allergy Anaphylaxis Verified 11/06/24 08:03 Review of Systems ROS Statement: Those systems with pertinent positive or pertinent negative responses have been documented in the HPI. ROS Other: All systems not noted in ROS Statement are negative. Past Medical History Past Medical History: Hypertension, Sleep Apnea/CPAP/BIPAP Additional Past Medical History / Comment(s): No CPAP use. Hx fractured ankle. F rontal lobe aneursym, spinal injections History of Any Multi-Drug Resistant Organisms: None Reported Past Surgical History: Cholecystectomy, Orthopedic Surgery Additional Past Surgical History / Comment(s): Lumbar decompression, Left shoulder scope, skin graft from shoulder to ankle, frontal lobe aneursym repair. Past Anesthesia/Blood Transfusion Reactions: No Reported Reaction Additional Past Anesthesia/Blood Transfusion Reaction / Comment(s): states "agitation coming out of anesthesia" Past Psychological History: No Psychological Hx Reported Smoking Status: Never smoker Past Alcohol Use History: None Reported Past Drug Use History: None Reported - Past Family History Mother Family Medical History: Cancer, Diabetes Mellitus, Deep Vein Thrombosis (DVT) Father Family Medical History: Diabetes Mellitus, Respiratory Disorder Additional Family Medical History / Comment(s): Alcoholism. Brother(s) Family Medical History: Asthma, Diabetes Mellitus Additional Family Medical History / Comment(s): Heart Murmur. Daughter(s) Family Medical History: No Reported History General Exam Limitations: no limitations General appearance: alert, in no apparent distress Head exam: Present: atraumatic, normocephalic, normal inspection Respiratory exam: Present: normal lung sounds bilaterally. Absent: respiratory distress, wheezes, rales, rhonchi, stridor Cardiovascular Exam: Present: regular rate, normal rhythm Back exam: Present: normal inspection, full ROM. Absent: tenderness Neurological exam: Present: alert, oriented X3, CN II-XII intact Psychiatric exam: Present: normal affect, normal mood Skin exam: Present: warm, dry, intact, normal color. Absent: rash Course Vital Signs 11/06/24 11/06/24 08:01 09:07 Temperature 99 F 98.0 F Pulse Rate 100 96 Respiratory 18 18 Rate Blood Pressure 181/140 156/99 O2 Sat by Pulse 98 96 Oximetry Medical Decision Making - Medical Decision Making This is a 34-year-old male who presents to the emergency department for back pain. Was pt. sent in by a medical professional or institution? @ -No Did you speak to anyone other than the patient for history? @ -No Did you review nursing and triage notes? @ -Yes, and I agree, it is accurate with regards to the patient's symptoms. Were old charts reviewed? @ -No Differential Diagnosis? @ -Differential Back Pain: Strain, zoster, cauda equina syndrome, epidural abscess, vertebral osteomyelitis, discitis, fracture, subluxation, disc herniation, DJD, spinal stenosis, dissection, AAA, pancreatitis, peptic ulcer disease, pyelonephritis, kidney stone, this is not meant to be an all-inclusive list. EKG interpreted by me (3pts min.)? @ -Not obtained X-rays interpreted by me (1pt min.)? @ -Not obtained CT interpreted by me (1pt min.)? @ -Not obtained U/S interpreted by me (1pt. min.)? @ -Not obtained What testing was considered but not performed? (CT, X-rays, U/S, labs)? Why? @ -None What meds were considered but not given? Why? @ -None Did you discuss the management of the patient with other professionals? @ -No Did you reconcile home meds? @ -No Was smoking cessation discussed for >3mins.? @ -No Was critical care preformed (if so, how long)? @ -No Were there social determinants of health that impacted care today? How? (Homelessness, low income, unemployed, alcoholism, drug addiction, transportation, low edu. Level, literacy, decrease access to med. care, prison, rehab)? @ -No Was there de-escalation of care discussed even if they declined? (Discuss DNR or withdrawal of care, Hospice)? @ -No What co-morbidities impacted this encounter? (DM, HTN, Smoking, COPD, CAD, Cancer, CVA, Hep., AIDS, mental health diagnosis, sleep apnea, morbid obesity)? @ -None Was patient admitted / discharged? @ -Discharged. Given the mechanism of injury, advised that x-rays likely would not be of any benefit, as this is most likely a lumbar strain. Toradol, Decadron, and a lidocaine patch administered in the emergency department. Prescription for diclofenac, Flexeril, and lidocaine patches provided with dosing instructions reviewed. He has follow-up with Dr. Snow in the past and I advised he follow-up with him for reevaluation if symptoms persist. Patient discharged home in stable condition. Case discussed with ED attending Dr. Ma. Return precautions reviewed in depth, the patient is instructed to return to the emergency department with any new, worsening, or concerning symptoms. Patient verbalized understanding. Undiagnosed new problem with uncertain prognosis? @ -None Drug Therapy requiring intensive monitoring for toxicity (Heparin, Nitro, Insulin, Cardizem)? @ -None Were any procedures done? @ -None Diagnosis/symptom? @ -Lumbar strain Acute, or Chronic, or Acute on Chronic? @ -Acute Uncomplicated (without systemic symptoms) or Complicated (systemic symptoms)? @ -Uncomplicated Side effects of treatment? @ -None Exacerbation, Progression, or Severe Exacerbation] @ -Not applicable Poses a threat to life or bodily function? @ -No Disposition Clinical Impression: Strain of lumbar region Disposition: HOME SELF-CARE Instructions (If sedation given, give patient instructions): Low Back Strain (ED), Acute Low Back Pain (ED) Additional Instructions: Return to the emergency department with any new, worsening, or concerning symptoms. Take the diclofenac twice daily for pain control. You may take this with Tylenol. Take the Flexeril as 1 to 2 tablets up to 3 times daily. Be aware that this may make you drowsy. You can also apply the lidocaine patches daily. Follow-up with Dr. Snow if your pain does not improve. Prescriptions: Cyclobenzaprine [Flexeril] 5 - 10 mg PO TID PRN #30 tablet PRN Reason: Pain Lidocaine 5% Patch [Lidoderm 5% Patch] 1 patch TOPICAL DAILY PRN #30 patch PRN Reason: Pain Diclofenac Sodium [Voltaren] 75 mg PO BID PRN #30 tab PRN Reason: Pain Is patient prescribed a controlled substance at d/c from ED?: No Referrals: Xiang Griffin DO [Primary Care Provider] - 1-2 days Hemal Snow DO [Doctor of Osteopathic Medicine] - 1-2 days Time of Disposition: 08:29
[2024-11-06] MEDS: DEXAMETHASONE SOD PHOSPHATE 10 MG/ML 1 ML VIAL IM STA (08:31)
[2024-11-06] MEDS: KETOROLAC 15 MG/ML 1 ML VIAL IM STA (08:32)
[2024-11-06] MEDS: LIDOCAINE 4% PATCH TOPICAL ONE (08:36)
[2024-11-06] MEDS: ACET/COD 300 MG/30 MG STARTER PACK 6 TAB BTL PO STA (08:36)
[2024-11-06 09:09] VITALS: BP 156/99; PULSE 96; TEMP 98
== END 2024-11-06 09:36 | disposition home or self-care (01) ==
LOC: EC 08:00
DX: S39.012A Strain of muscle, fascia and tendon of lower back, initial encounter (principal); Z88.8 Allergy status to other drugs, medicaments and biological substances; Z88.0 Allergy status to penicillin; Z91.041 Radiographic dye allergy status; X50.0XXA Overexertion from strenuous movement or load, initial encounter
CPT/HCPCS: 99283; 96372 ×2; J1100; J1885